=== PATIENT | female | born 1965 | race Caucasian/White ===

== ENCOUNTER 2017-11-25 11:10 | Day surgery (SDC) | payer BC ==
[2017-11-25] MEDS ORDERED: PROPOFOL 10 MG/ML VIAL IV ONE (11:11)
--- NOTE | 2017-11-28 13:40 | Operative Note ---
DATE OF SURGERY: 11/25/2017 SURGEON: Hong Haynes MD OPERATION: COLONOSCOPY. INDICATIONS: This is a 52-year-old female with average risk for colorectal cancer who presented for screening colonoscopy. POSTOPERATIVE DIAGNOSES: 1. Poor bowel preparation, cannot exclude any significant lesion. 2. Grade 1 internal hemorrhoids. ANESTHESIA: Sedation is per Anesthesia. Pulse oximetry was monitored throughout the procedure to maintain O2 saturation of 90% or greater. Supplemental oxygen was administered via nasal cannula. Cardiac and vital signs were monitored throughout the duration of the procedure, and they were stable. The procedure of colonoscopy and risks and alternatives of the procedure, including the risk of bleeding and perforation, among others, were explained to the patient who voiced understanding and agreed to have the procedure done. Physical examination was performed, and the patient was found stable for sedation. PROCEDURE: The patient was placed in the left lateral position. Sedation was initiated. A digital rectal exam was performed and showed some mild external hemorrhoids with no palpable rectal masses. An Olympus PCF-180AL colonoscope was then inserted into the rectum under direct visualization. It was advanced to the ascending colon without difficulty. The colonic mucosa was carefully examined upon introduction of the colonoscope. There were no gross lesions noted; however, the bowel prep was poor with solid stool debris. I cannot exclude any significant lesion. The colonoscope was then withdrawn and procedure was terminated. The patient tolerated the procedure well without any immediate complications. She remained with stable vital signs and was transferred to the recovery room. RECOMMENDATION: The patient should have a repeat colonoscopy with 2-day bowel preparation in the very near future. Thank you for allowing me to participate in the care of your patient. CC: Dr. Te BEDOLLA
== END 2017-11-25 14:45 | disposition home or self-care (01) ==
LOC: HOP 11:10
PROVIDERS: ATTEND Internal Medicine Gastroenterology
DX: Z12.11 Encounter for screening for malignant neoplasm of colon (principal); I10 Essential (primary) hypertension
CPT/HCPCS: 00812; 81025; G0121

== ENCOUNTER 2018-01-13 10:22 | Day surgery (SDC) | payer BC ==
[2018-01-13] MEDS ORDERED: PROPOFOL 10 MG/ML VIAL IV ONE (10:23)
[2018-01-13] MEDS ORDERED: LIDOCAINE 2% MDV (20MG/ML) 20ML VIAL IV ONE (10:23)
--- NOTE | 2018-01-16 12:50 | Operative Note ---
DATE OF SURGERY: 01/13/2018 SURGEON: Hong Haynes MD OPERATION: COLONOSCOPY. INDICATIONS: This is a 52-year-old female with average risk for colorectal cancer who presented for screening colonoscopy. She had an attempt at colonoscopy about a month ago but she had a poor bowel preparation and presented after a 2-day prep. POSTOPERATIVE DIAGNOSES: 1. Suboptimal bowel preparation. Cannot exclude any significant lesions. 2. Otherwise normal colon and terminal ileum. ANESTHESIA: Sedation is per Anesthesia. Pulse oximetry was monitored throughout the procedure to maintain O2 saturation of 90% or greater. Supplemental oxygen was administered via nasal cannula. Cardiac and vital signs were monitored throughout the duration of the procedure, and they were stable. The procedure of colonoscopy and risks and alternatives of the procedure, including the risk of bleeding and perforation, among others, were explained to the patient who voiced understanding and agreed to have the procedure done. Physical examination was performed, and the patient was found stable for sedation. PROCEDURE: The patient was placed in the left lateral position. Sedation was initiated. A digital rectal exam was performed and showed some mild external hemorrhoids with no palpable rectal masses. An Olympus PCF-180AL colonoscope was then inserted into the rectum under direct visualization. It was advanced to the cecum without difficulty. The ileocecal valve and appendiceal orifice were identified and photographed. The colonic mucosa was carefully examined upon introduction of the colonoscope. The bowel preparation was suboptimal but enough to exclude any significant lesions. The colonoscope was then withdrawn after the terminal ileal mucosa was inspected for about 10 cm and it was normal. The cecum, ascending colon, transverse colon, descending colon, and sigmoid colon mucosa appeared normal. In the rectum, retroflexion was performed and grade 1 internal hemorrhoids were noted. The colonoscope was then withdrawn and the procedure was terminated. The patient tolerated the procedure well without any immediate complications. The patient remained with stable vital signs and was transferred to the recovery room. RECOMMENDATIONS: 1. The patient should be on a high-fiber diet. 2. The patient is to have a repeat colonoscopy for screening in 3 years because of the suboptimal bowel preparation and preferably with at least 2-day prep. Thank you for allowing me to participate in the care of your patient. CC: DO CHIOMA Kam
== END 2018-01-13 12:10 | disposition home or self-care (01) ==
LOC: HOP 10:22
PROVIDERS: ATTEND Internal Medicine Gastroenterology
DX: Z12.11 Encounter for screening for malignant neoplasm of colon (principal); I10 Essential (primary) hypertension; R63.4 Abnormal weight loss
CPT/HCPCS: 00812; 81025; G0121